=== PATIENT | female | born 1945 | race Caucasian/White ===

== ENCOUNTER 2017-02-11 10:29 | Outpatient (CLI) | payer MEDICARE ==
--- NOTE | 2017-02-11 13:53 | Mammography Report ---
BILATERAL DIGITAL SCREENING MAMMOGRAM with CAD: 02/11/17 10:29:00 CLINICAL: Routine screening. COMPARISON:08/04/15 and 04/22/14 FINDINGS: There are scattered areas of fibroglandular density.Stable right retroareolar asymmetry on the CC view. No mass, architectural distortion or suspicious calcifications. IMPRESSION: No mammographic evidence of malignancy. BI-RADS CATEGORY: 2 -- Benign RECOMMENDATION: Routine mammographic screening in one year. COMMENT: Patient follow-up letters are generated by our [employer] application.
== END 2017-02-11 10:30 | disposition home or self-care (01) ==
LOC: SPVWC 10:29
DX: Z12.31 Encounter for screening mammogram for malignant neoplasm of breast (principal)
CPT/HCPCS: 77067; G0202